=== PATIENT | female | born 1965 | race Caucasian/White ===

== ENCOUNTER 2018-05-22 07:37 | Emergency (ER) | payer OTHER ==
[2018-05-22] MEDS: IBUPROFEN 800 MG TAB PO (08:18)
== END 2018-05-22 09:55 | disposition home or self-care (01) ==
LOC: FTE 07:37
DX: M54.9 Dorsalgia, unspecified (principal); I10 Essential (primary) hypertension
CPT/HCPCS: 72100; 73030; 99284-25